=== PATIENT | female | born 1975 | race Caucasian/White ===

== ENCOUNTER 2017-04-29 22:11 | Emergency (ER) | payer BC ==
[2017-04-29 22:22] VITALS: BP 130/56
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
== END 2017-04-29 23:15 | disposition home or self-care (01) ==
LOC: ER 22:11
DX: M25.511 Pain in right shoulder (principal); F90.9 Attention-deficit hyperactivity disorder, unspecified type; F41.9 Anxiety disorder, unspecified; Z85.038 Personal history of other malignant neoplasm of large intestine; Z85.43 Personal history of malignant neoplasm of ovary; F17.200 Nicotine dependence, unspecified, uncomplicated

== ENCOUNTER 2017-06-01 07:56 | Day surgery (SDC) | payer BC ==
[~2017-06-01 07:56] MED LIST: HYDROmorphone HCL 2 MG/ML VIAL IV PRN; RINGER'S SOLUTION,LACTATED 1,000 ML IV PRN; ceFAZolin SODIUM 1 GM VIAL IV PRN; oxyCODONE HCL/ACETAMINOPHEN 1 TAB TABLET PO PRN
[2017-06-01] MEDS ORDERED: BUPIVACAINE HCL 50 ML VIAL IJ ONE ×2 (09:15)
[2017-06-01] MEDS ORDERED: RINGER'S SOLUTION,LACTATED 1,000 ML IV ONE (10:01)
--- NOTE | 2017-06-01 10:09 | POSTOP NO ---
Date of Surgery: 06/01/17 Anesthesia: MAC Patient Tolerated the Procedure: Well Post Operative Diagnosis/Procedures: Sports Clerk: Aldo Block PA-C Post-operative Diagnosis: Left cubital tunnel syndrome, left radial wrist mass, left ring finger trigger finger Finding: Above Procedure: Left cubital tunnel release, left excision of wrist mass, left trigger finger release ring finger Estimated Blood Loss: Minimal Specimens: Mass for pathology
--- NOTE | 2017-06-01 10:15 | OR ---
Operative Report - Dictated Report Narrative: Date: 06/01/2017 Physician: Aram Riddle M.D. Imager: Richard Soler PA-C Preoperative diagnosis: Left cubital tunnel syndrome, left radial wrist mass, left ring trigger finger Postoperative diagnosis: Left cubital tunnel syndrome, left radial wrist mass, left ring trigger finger Procedure: Left ulnar nerve decompression at the cubital tunnel , excision of left radial wrist mass, left ring finger trigger finger release Anesthesia: General LMA Plus local Complications: None Estimated blood loss: Minimal Tourniquet time: 43 Minutes at 250 mmHg Specimens: None Retained implants: None Drains: None Indications: Mrs. Quintana Is a 41-year-old female who has been followed in my clinic with complaints of cubital tunnel syndrome, a radial sided wrist mass that was painful and prominent, and ring finger triggering. 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 Conservative measures had failed including, but not limited to, activity modification, medications, and/ or splinting. The risks, benefits, and alternatives were discussed in clinic. The risks being bleeding, infection, nerve, tendon, blood vessel injury, persistent pain, wound competitions, weakness, palm pain, need for additional procedures, and persistent symptoms. Consent was obtained in the clinic. Procedure: After marking the correct extremity in the preoperative holding area, a timeout was performed in the operating room. IV antibiotics consisting of Ancef were administered prior to the procedure. A well-padded tourniquet was applied to the operative upper arm. The arm was then prepped and draped in a standard sterile fashion. The arm was exsanguinated and the tourniquet was inflated to 250 mmHg. 0.5% Marcaine without epinephrine was infused into the projected incision site over the medial elbow, wrist mass, and the flexion crease in line with the ring finger. Using loupe magnification, a transverse incision in the appropriate palmar flexion crease in line with the digit. Blunt dissection was carried down through the subcutaneous tissues using bipolar cautery for hemostasis. Care was taken to protect the digital nerves. Staying midline along the flexor tendon, the A1 gume was identified. A talat was made in the proximal edge of the A1 gume and tenotomies were utilized in order to completely transect the A1 gume. Care was to stay midline and avoid transection of the A2 gume. Soft tissues overlying the flexor tendon proximal to the A1 gume were also released ensuring that there were no other compressive structures contributing to the triggering. The finger was placed through range of motion and demonstrated no additional catching. The tendons were visualized and mobilized out of the wound, and did not demonstrate any gross pathology or masses that required debridement. The tendons were noted to be intact. Next we turned our attention the wrist mass. A transverse incision made centered over the wrist mass over the radial aspect of the wrist. The mass itself was approximately 5 mm in diameter and appeared to be attached to the extensor pollicis brevis. It was dissected off the tendon maintaining the integrity of the tendon and sent for pathology. 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 This wound was irrigated. Using loupe magnification, a longitudinal incision centered over the cubital tunnel was made approximately 5 centimeters in length. Blunt dissection was carried down to the subcutaneous tissues using bipolar cautery for hemostasis. Care was taken to protect the identified underlying cutaneous nerves. The ulnar nerve was identified as it passed through the medial intermuscular septum along the distal triceps. A release of the canal in this area as the ulnar nerve passed anterior to posterior was performed in order to decompress the nerve at this site. The nerve was dissected releasing the overlying soft tissues while maintaining the vascularity of the nerve down to the area of the medial epicondyles and Sinclair's ligament. The nerve was completely decompressed as it passed posterior to the medial condyle and was followed into the flexor carpi ulnaris. The deep fascia of the flexor carpi ulnaris muscle was released in order to decompress the nerve at this site. The first branch of the ulnar nerve was protected as well as any identified recurrent branches. The elbow was placed through range of motion and it was noted that the nerve was not unstable nor did it appear to be under tension as it passed behind the medial epicondyle. For this reason it was not felt that a transposition was not necessary. Once it was felt that we had completely released the compressive structures on the ulnar nerve, the wound was thoroughly irrigated and the tourniquet was deflated. Hemostasis was obtained using pressure and bipolar cautery. Once adequate hemostasis was in place, additional local anesthetic was placed in the skin edges of all the incisions, and the subcutaneous tissue at the elbow was closed with interrupted Vicryl. The skin incisions at each site was closed with 4-0 nylon and sterile dressings consisting of Xeroform, 4 x 4, soft roll, and a forearm Farhad wrap was applied. All sponge, needle, blade, and instrument counts were correct prior to closing the wounds. The patient was awoken and transferred to the postanesthesia care unit in stable condition.
[2017-06-01 11:49] VITALS: BP 111/65
== END 2017-06-01 07:57 | disposition home or self-care (01) ==
LOC: AMB 07:56
PROVIDERS: ATTEND Orthopaedic Surgery
PROC: 01N40ZZ Release Ulnar Nerve, Open Approach (ICD-10-PCS; principal; 2017-06-01 09:45)
PROC: 0LN80ZZ Release Left Hand Tendon, Open Approach (ICD-10-PCS; 2017-06-01 09:45)
PROC: 0XBH0ZZ Excision of Left Wrist Region, Open Approach (ICD-10-PCS; 2017-06-01 09:45)
DX: G56.22 Lesion of ulnar nerve, left upper limb (principal); M65.342 Trigger finger, left ring finger; M67.432 Ganglion, left wrist; J45.909 Unspecified asthma, uncomplicated; F41.9 Anxiety disorder, unspecified; F17.200 Nicotine dependence, unspecified, uncomplicated; Z68.34 Body mass index [BMI] 34.0-34.9, adult